=== PATIENT | female | born 1970 | race Two or more races ===

== ENCOUNTER 2021-05-04 07:03 | Inpatient (IN) | payer OTHER ==
[2021-05-04] VITALS (8 sets, daily range): BP systolic 124–134; BP diastolic 59–71
[~2021-05-04] VITALS: Ht 157.5 cm; Wt 54.1 kg
--- NOTE | 2021-05-04 07:52 | RAD ---
AP chest. HISTORY: Covid positive AP view was taken of the chest. There are bilateral infiltrates consistent with Covid pneumonia. Hear t is normal in size. There is no pleural effusion. IMPRESSION: 1. Bilateral infiltrates Electronically signed by: Franki Gonzalez MD (05/04/2021 7:50 AM) [id number]
[2021-05-04 08:22] LABS: BASO % 1 % (0-3); EOS % 1 % (0-3); HEMATOCRIT 21.2 % (36.0-47.0); LYMPH # 1.4 x10^3/uL (1.0-4.8); LYMPH % 24 % (24-48); MEAN CORPUSCULAR HEMOGLOBIN 15 pg (25-35); MEAN CORPUSCULAR HGB CONC 29 g/dL (31-37); MEAN CORPUSCULAR VOLUME 53 fL (79-100); MONO # 0.4 x10^3/uL (0.0-1.1); MONO % 7 % (0-9); NEUT % 68 % (31-73); PLATELET COUNT 467 x10^3/uL (140-400); RED CELL DISTRIBUTION WIDTH 22.9 % (11.5-14.5); WHITE BLOOD COUNT 5.9 x10^3/uL (4.0-11.0)
[2021-05-04 08:29] LABS: HEMOGLOBIN 6.1 g/dL (12.0-15.5)
[2021-05-04 08:31] LABS: CALCIUM 8.5 mg/dL (8.5-10.1); CREATININE 0.6 mg/dL (0.6-1.0); POTASSIUM 3.7 mmol/L (3.5-5.1)
[2021-05-04 08:37] LABS: ALBUMIN 2.7 g/dL (3.4-5.0); ALBUMIN/GLOBULIN RATIO 0.6 (1.0-1.7); MAGNESIUM 2.2 mg/dL (1.8-2.4); TOTAL BILIRUBIN 0.2 mg/dL (0.2-1.0); TOTAL PROTEIN 7.1 g/dL (6.4-8.2)
--- NOTE | 2021-05-04 08:45 | EKG ---
[facility] [address] [place] [address] Test Date: 2021-05-04 Test Time: 07:36:27 Pat Name: CLINT LEAL Department: Room: Gender: F [employer]: : 1970 Requested By: JASEN AVILA Order Number: [id number] Reading MD: Vikram Campuzano MD Measurements Intervals Ida Rate: 92 P: 29 ID: [id number] QRS: -6 QRSD: 72 T: 29 QT: 342 QTc: 428 Interpretive Statements SINUS RHYTHM Electronically Signed On 05-06-2021 9:17:57 CDT by Vikram Campuzano MD
[2021-05-04] MEDS ORDERED: PIPERACILLIN/TAZOBACTAM 3.375 GM in IV NORMAL SALINE 50ML 50 ML IV ONE (09:15)
[2021-05-04] MEDS ORDERED: methylPREDNISolone SOD SUCC PF 125 MG/2 ML VIAL. IV ONE (09:15)
--- NOTE | 2021-05-04 09:23 | PHYS DOC ---
Past Medical History Past Surgical History: No Surgical History Smoking Status: Never Smoker Alcohol Use: None General Adult EDM: Chief Complaint: SHORTNESS OF BREATH HPI: HPI: Patient is a 50 year old female who present to ER due to trouble breathing, fever and chill. Patient says she was diagnosed with COVID-19 infection 2 weeks ago. Patient was put on prednisone and Z-Gilles, she stopped taking prednisone because whenever she took it she feels like she was out of breath. Patient denies any abdominal pain, no vomiting blood, no dark stool. Patient denies any chest pain. Review of Systems: Review of Systems: Constitutional: Positive for fever and chills. Eyes: Denies change in visual acuity. [] HENT: Denies nasal congestion or sore throat. [] Respiratory: Positive for cough and trouble breathing Cardiovascular: Denies chest pain or edema. [] GI: Denies abdominal pain, nausea, vomiting, bloody stools or diarrhea. [] : Denies dysuria. [] Musculoskeletal: Denies back pain or joint pain. [] Integument: Denies rash. [] Neurologic: Denies headache, focal weakness or sensory changes. Positive for general weakness. Endocrine: Denies polyuria or polydipsia. [] Lymphatic: Denies swollen glands. [] Psychiatric: Denies depression or anxiety. [] Heart Score: C/O Chest Pain: N/A Risk Factors: Risk Factors: DM, Current or recent (<one month) smoker, HTN, HLP, family history of CAD, obesity. Risk Scores: Score 0 - 3: 2.5% MACE over next 6 weeks - Discharge Home Score 4 - 6: 20.3% MACE over next 6 weeks - Admit for Clinical Observation Score 7 - 10: 72.7% MACE over next 6 weeks - Early Invasive Strategies Current Medications: Current Medications Medications (Trade) Dose Ordered Sig/Herbert Start Time Stop Time Status Last Admin Dose Admin Methylprednisolone Sodium Succinate (SOLU-Medrol 125MG VIAL) 125 mg 1X ONCE 05/04/21 09:15 05/04/21 09:16 DC Piperacillin Sod/ Tazobactam Sod 3.375 gm/Sodium Chloride 50 ml @ 100 mls/hr 1X ONCE 05/04/21 09:15 05/04/21 09:44 Allergies: Allergies: Allergies Coded Allergies Type Severity Reaction Last Updated Verified No Known Drug Allergies 05/04/21 No Physical Exam: PE: Constitutional: Well developed, well nourished, no acute distress, non-toxic appearance. [] HENT: Normocephalic, atraumatic, bilateral external ears normal, oropharynx moist, no oral exudates, nose normal. [] Eyes: PERRLA, EOMI, conjunctiva pale, no discharge. [] Neck: Normal range of motion, no tenderness, supple, no stridor. [] Cardiovascular:Heart rate regular rhythm, loud systolic murmur [] Lungs & Thorax: Bilateral breath sounds with crackles at lung bases to auscultation [] Abdomen: Bowel sounds normal, soft, no tenderness, no masses, no pulsatile masses. [] Skin: Warm, dry, no erythema, no rash. [] Back: No tenderness, no CVA tenderness. [] Extremities: No tenderness, no cyanosis, no clubbing, ROM intact, no edema. [] Neurologic: Alert and oriented X 3, normal motor function, normal sensory function, no focal deficits noted. [] Psychologic: Affect normal, judgement normal, mood normal. [] Current Patient Data: Labs: Laboratory Tests Test 05/04/21 07:50 White Blood Count 5.9 x10^3/uL (4.0-11.0) Red Blood Count 4.00 x10^6/uL (3.50-5.40) Hemoglobin 6.1 g/dL (12.0-15.5) *L Hematocrit 21.2 % (36.0-47.0) L Mean Corpuscular Volume 53 fL (79-100) L Mean Corpuscular Hemoglobin 15 pg (25-35) L Mean Corpuscular Hemoglobin Concent 29 g/dL (31-37) L Red Cell Distribution Width 22.9 % (11.5-14.5) H Platelet Count 467 x10^3/uL (140-400) H Neutrophils (%) (Auto) 68 % (31-73) Lymphocytes (%) (Auto) 24 % (24-48) Monocytes (%) (Auto) 7 % (0-9) Eosinophils (%) (Auto) 1 % (0-3) Basophils (%) (Auto) 1 % (0-3) Neutrophils # (Auto) 4.0 x10^3/uL (1.8-7.7) Lymphocytes # (Auto) 1.4 x10^3/uL (1.0-4.8) Monocytes # (Auto) 0.4 x10^3/uL (0.0-1.1) Eosinophils # (Auto) 0.0 x10^3/uL (0.0-0.7) Basophils # (Auto) 0.0 x10^3/uL (0.0-0.2) Platelet Estimate Pending Sodium Level 140 mmol/L (136-145) Potassium Level 3.7 mmol/L (3.5-5.1) Chloride Level 104 mmol/L (98-107) Carbon Dioxide Level 24 mmol/L (21-32) Anion Gap 12 (6-14) Blood Urea Nitrogen 7 mg/dL (7-20) Creatinine 0.6 mg/dL (0.6-1.0) Estimated GFR (Cockcroft-Gault) 105.0 BUN/Creatinine Ratio 12 (6-20) Glucose Level 95 mg/dL (70-99) Calcium Level 8.5 mg/dL (8.5-10.1) Magnesium Level 2.2 mg/dL (1.8-2.4) Total Bilirubin 0.2 mg/dL (0.2-1.0) Aspartate Amino Transferase (AST) 43 U/L (15-37) H Alanine Aminotransferase (ALT) 55 U/L (14-59) Alkaline Phosphatase 128 U/L (46-116) H Troponin I Quantitative < 0.017 ng/mL (0.000-0.055) AM-Kin-M-Type Natriuretic Peptide 140 pg/mL (0-124) H Total Protein 7.1 g/dL (6.4-8.2) Albumin 2.7 g/dL (3.4-5.0) L Albumin/Globulin Ratio 0.6 (1.0-1.7) L Laboratory Tests 05/04/21 07:50 Laboratory Tests 05/04/21 07:50 Vital Signs: Vital Signs Date Time Temp Pulse Resp B/P (MAP) Pulse Ox O2 Delivery O2 Flow Rate FiO2 05/04/21 07:20 98.5 96 25 133/63 94 Room Air 98.5 EKG: EKG: EKG was done at 736, heart rate of 92 beats per 100, sinus rhythm, left axis deviation, no ST segment elevation. Radiology/Procedures: Radiology/Procedures: [][facility] [address] [place] [address] IMAGING REPORT Signed PATIENT: CLINT LEAL ACCOUNT: [id number] : 1970 LOCATION: ER AGE: 50 SEX: F EXAM STATUS: PRE ER ORD. PHYSICIAN: JASEN AVILA DO REASON: soa, has COVID INFECTION FOR 2 WEEKS./NOT READY 7:25 NURSE STARTING IV PROCEDURE: CHEST AP ONLY AP chest. HISTORY: Covid positive AP view was taken of the chest. There are bilateral infiltrates consistent with Covid pneumonia. Heart is normal in size. There is no pleural effusion. IMPRESSION: 1. Bilateral infiltrates Electronically signed by: Franki Gonzalez MD (05/04/2021 7:50 AM) [id number] DICTATED and SIGNED BY: FRANKI GONZALEZ MD DATE: 05/04/21 [id number] Course & Med Decision Making: Course & Med Decision Making Pertinent Labs and Imaging studies reviewed. (See chart for details) Patient is a 50-year-old female who present to ER due to trouble breathing. Patient has been infected with COVID-19 for 2 weeks. Patient was found to be anemic, hypoxic on room air, COVID-19 pneumonia. Patient will need to be admitted to hospital for further evaluation and treatment. Patient was discussed with Dr. Amador who agreed to admit the patient. Gabo Disclaimer: Gabo Disclaimer: This electronic medical record was generated, in whole or in part, using a voice recognition dictation system. Departure Departure Impression: Primary Impression: Pneumonia due to COVID-19 virus Additional Impressions: Hypoxia Anemia Disposition: ADMITTED INPATIENT Admitting Physician: GURU (Dr. Amador) Condition: STABLE Referrals: NO PCP (PCP) JASEN AVILA DO May 04, 2021 09:22
[2021-05-04] MEDS ORDERED: ONDANSETRON PF 4 MG/2 ML VIAL. IVP PRN (09:30)
[2021-05-04 10:10] LABS: ANISOCYTOSIS MOD
[2021-05-04 10:11] LABS: PLT ESTIMATE INCREASED (ADEQUATE)
[2021-05-04 10:12] LABS: OVALOCYTES OCC
--- NOTE | 2021-05-04 12:44 | PDOC2 ---
GI CONSULT Date of Service: DATE: 05/04/21 TIME: 12:35 Reason For Consult: anemia HPI: HPI: 50 y/o female diagnosed w/ COVID ~2 weeks ago as outpt, to ER w/ increasing SOA. Noted w/ microcytic anemia and we are asked to see. Denies obvious bleeding including hematemesis, hematochezia, and melena. Some n/v and diarrhea with COVID, but none chronically and says these symptoms are better. No abd pain, constipation, reflux, or dysphagia. Not sure about weight loss. Unaware of h/o anemia. No previous EGD or colonoscopy. Reports monthly menstruation that is "arely heavy." No GB, liver, pancreas, or PUD history. Denies NSAIDs. Was given atbx and steroids as outpt - stopped one because it made her short of breath. PMH: PMH: denies FH: Family History: No pertinent hx (denies GI cancers) Social History: Smoke: No ALCOHOL: none Drugs: None ROS: GEN: Denies fevers, chills, sweats HEENT: Denies blurred vision, sore throat CV: Denies chest pain RESP: +SOA GI: Per HPI : Denies hematuria, dysuria ENDO: Denies weight changes NEURO: Denies confusion, dizziness MSK: Denies weakness, joint pain/swelling SKIN: Denies jaundice, pruritus Vitals: Vitals: Vital Signs Date Time Temp Pulse Resp B/P (MAP) Pulse Ox O2 Delivery O2 Flow Rate FiO2 05/04/21 11:33 99.7 96 18 128/59 (82) 93 Room Air 99.7 Labs: Labs: Laboratory Tests Test 05/04/21 07:50 05/04/21 08:45 White Blood Count 5.9 x10^3/uL (4.0-11.0) Red Blood Count 4.00 x10^6/uL (3.50-5.40) Hemoglobin 6.1 g/dL (12.0-15.5) Hematocrit 21.2 % (36.0-47.0) Mean Corpuscular Volume 53 fL (79-100) Mean Corpuscular Hemoglobin 15 pg (25-35) Mean Corpuscular Hemoglobin Concent 29 g/dL (31-37) Red Cell Distribution Width 22.9 % (11.5-14.5) Platelet Count 467 x10^3/uL (140-400) Neutrophils (%) (Auto) 68 % (31-73) Lymphocytes (%) (Auto) 24 % (24-48) Monocytes (%) (Auto) 7 % (0-9) Eosinophils (%) (Auto) 1 % (0-3) Basophils (%) (Auto) 1 % (0-3) Neutrophils # (Auto) 4.0 x10^3/uL (1.8-7.7) Lymphocytes # (Auto) 1.4 x10^3/uL (1.0-4.8) Monocytes # (Auto) 0.4 x10^3/uL (0.0-1.1) Eosinophils # (Auto) 0.0 x10^3/uL (0.0-0.7) Basophils # (Auto) 0.0 x10^3/uL (0.0-0.2) Platelet Estimate Increased (ADEQUATE) Anisocytosis Mod Ovalocytes Occ Sodium Level 140 mmol/L (136-145) Potassium Level 3.7 mmol/L (3.5-5.1) Chloride Level 104 mmol/L (98-107) Carbon Dioxide Level 24 mmol/L (21-32) Anion Gap 12 (6-14) Blood Urea Nitrogen 7 mg/dL (7-20) Creatinine 0.6 mg/dL (0.6-1.0) Estimated GFR (Cockcroft-Gault) 105.0 BUN/Creatinine Ratio 12 (6-20) Glucose Level 95 mg/dL (70-99) Calcium Level 8.5 mg/dL (8.5-10.1) Magnesium Level 2.2 mg/dL (1.8-2.4) Total Bilirubin 0.2 mg/dL (0.2-1.0) Aspartate Amino Transf (AST/SGOT) 43 U/L (15-37) Alanine Aminotransferase (ALT/SGPT) 55 U/L (14-59) Alkaline Phosphatase 128 U/L (46-116) Troponin I Quantitative < 0.017 ng/mL (0.000-0.055) NU-Uox-I-Type Natriuretic Peptide 140 pg/mL (0-124) Total Protein 7.1 g/dL (6.4-8.2) Albumin 2.7 g/dL (3.4-5.0) Albumin/Globulin Ratio 0.6 (1.0-1.7) Lactic Acid Level 1.2 mmol/L (0.4-2.0) Allergies: Coded Allergies: No Known Drug Allergies (Unverified , 05/04/21) Medications: Current Medications Medications (Trade) Dose Ordered Sig/Herbert Route PRN Reason Start Time Stop Time Status Last Admin Dose Admin Piperacillin Sod/ Tazobactam Sod 3.375 gm/Sodium Chloride 50 ml @ 100 mls/hr 1X ONCE IV 05/04/21 09:15 05/04/21 09:44 DC 05/04/21 09:56 Methylprednisolone Sodium Succinate (SOLU-Medrol 125MG VIAL) 125 mg 1X ONCE IV 05/04/21 09:15 05/04/21 09:16 DC 05/04/21 09:55 Imaging: Imaging: CXR 05/04 IMPRESSION: 1. Bilateral infiltrates PE: GEN: NAD HEENT: Atraumatic, PERRL LUNGS: diminished anteriorly, room air HEART: RRR ABD: NABS, S/ND/NT EXTREMITY: No edema SKIN: No rashes, no jaundice NEURO/PSYCH: A & O 3 A/P: A/P: COVID, pulm infiltrates Microcytic anemia, thrombocytosis, mildly elevated AST and Alk Phos CRC screen - none -- Address respiratory issues. Agree w/ transfusion. Check anemia parameters for completeness. Follow labs. Give empiric PPI. Consider iron infusion. Would benefit from EGD and colonoscopy for further evaluation - can pursue as outpt after COVID issues resolved. Also may need to consider SUPERVISOR SOL[employer] MAKING eval down the road if GI workup unrevealing. Okay to eat per GI - d/w nurse. LESVIA VOGEL May 04, 2021 12:44
[2021-05-04] MEDS: PANTOPRAZOLE 40 MG TABLET.DR. PO SCH (13:30)
[2021-05-04] MEDS ORDERED: IRON SUCROSE COMPLEX 200 MG in IV NORMAL SALINE 100ML 100 ML IV ONE (14:00)
--- NOTE | 2021-05-04 14:43 | HP ---
ADMIT DATE: 05/04/2021 CHIEF COMPLAINT: Shortness of breath. HISTORY OF PRESENT ILLNESS: The patient is a pleasant 50-year-old female who has had COVID-19 for 2 weeks. She has been developing increasing shortness of breath. While in the ER, we noticed that her hemoglobin is down to 6.1. I discussed the case with ER physician. We are going to admit the patient and consult GI. We also transfusing the patient. PAST MEDICAL HISTORY: COVID-19 for the past 2 weeks, previous anemia. ALLERGIES: None. FAMILY HISTORY: Diabetes. SOCIAL HISTORY: She does not drink, smoke or take drugs. MEDICATIONS: Reviewed, please refer to the MRAD. REVIEW OF SYSTEMS: GENERAL: No history of weight change, weakness or fevers. SKIN: No bruising, hair changes or rashes. EYES: No blurred, double or loss of vision. NOSE AND THROAT: No history of nosebleeds, hoarseness or sore throat. HEART: No history of palpitations, chest pain or shortness of breath on exertion. LUNGS: Denies cough, hemoptysis, wheezing or shortness of breath. GASTROINTESTINAL: Denies changes in appetite, nausea, vomiting, diarrhea or constipation. GENITOURINARY: No history of frequency, urgency, hesitancy or nocturia. NEUROLOGIC: Denies history of numbness, tingling, tremor or weakness. PSYCHIATRIC: No history of panic, anxiety or depression. ENDOCRINE: No history of heat or cold intolerance, polyuria or polydipsia. EXTREMITIES: Denies muscle weakness, joint pain, pain on walking or stiffness. . PHYSICAL EXAMINATION: VITALS: Within normal limits and are stable. GENERAL: No apparent distress. Alert and oriented. HEENT: Normal cephalic atraumatic, external auditory canals are patent. EYES: Extraocular muscles are intact, pupils are equally round and reactive to light and accommodation. MUSCULOSKELETAL: Well developed, well nourished, good range of motion. ENDOCRINE: No thyromegaly was palpated. LYMPHATICS: No cervical chain or axillary nodes were noted. HEMATOPOIETIC: No bruising. NECK: Supple, no JVD, no thyromegaly was noted. LUNGS: Clear to auscultation in all lung marquez without rhonchi or wheezing. HEART: RRR, S1, S2 present. Peripheral pulses intact, no obvious murmurs were noted. ABDOMEN: Soft, nontender. Positive bowel sounds no organomegaly, normal bowel sounds. EXTREMITIES: Without any cyanosis, clubbing, or edema. Pedal pulses intact, Homans sign is negative. NEUROLOGIC: Normal speech, normal tone. A and O x 3, moves all extremities, no obvious focal deficits. PSYCHIATRIC: Normal affect, normal mood. Stable. SKIN: No ulcerations or rashes, good skin turgor, no jaundice. VASCULAR: Good capillary refill, neurovascular bundle appears to be intact. LABORATORY DATA: Hemoglobin 6.1. White count 5.9, platelets 427. Electrolytes pending. BNP 140. Troponin is 0. B12 high at 1232. Chest x-ray shows bilateral infiltrates. ASSESSMENT AND PLAN: COVID-19, respiratory failure and severe anemia of undetermined etiology. The patient has been admitted. We will transfuse 2 units of packed red blood cells. Home meds. DVT prophylaxis. Full code. COVID protocol. We consulted GI, they are checking anemia parameters. Empiric proton pump inhibitors. They are considering EGD and colonoscopy as outpatient. We will trend her labs. RODNEY DR: CATIA/hillary TID: [id number]
[2021-05-04 15:40] LABS: HEMATOCRIT 24.9 % (36.0-47.0); HEMOGLOBIN 7.7 g/dL (12.0-15.5)
[2021-05-04] MEDS ORDERED: ACETAMINOPHEN 325 MG TABLET. PO PRN (16:15)
[2021-05-04] MEDS: PIPERACILLIN/TAZOBACTAM 3.375 GM in IV NORMAL SALINE 50ML 50 ML IV SCH ×2 (18:30→23:50)
[2021-05-04] MEDS ORDERED: IBUP-1027 PO (19:53)
[2021-05-04] MEDS ORDERED: IBUPROFEN 400 MG TABLET. PO PRN (20:00)
--- NOTE | 2021-05-04 20:30 | NUR ---
NURSING NOTE Pt assessment completed. Pts oxygen level at this time is at 87% on room air. Pt c/o SOA, RR @ 28. Pt placed on 3L/NC, breathing techniques discussed with pt with return demo. Oxygen level up to 93%. Will monitor.
--- NOTE | 2021-05-04 23:45 | NUR ---
NURSING NOTE Pt sitting up at bedside, oxygen level on 3L/NC is at 87-89%. Pt c/o increasing SOA after brushing her teeth. Oxygen turned up to 5L/NC. Pt assisted to BSC, then back to bed. Oxygen level after settling back in bed is at 95%. Will monitor.
[2021-05-05 02:52] VITALS: BP 136/67
[2021-05-05] MEDS: PIPERACILLIN/TAZOBACTAM 3.375 GM in IV NORMAL SALINE 50ML 50 ML IV SCH ×3 (05:48→17:45)
[2021-05-05 07:00] VITALS: BP 132/40
[2021-05-05 07:01] LABS: HEMATOCRIT 23.6 % (36.0-47.0); HEMOGLOBIN 7.7 g/dL (12.0-15.5); RED BLOOD COUNT 3.98 x10^6/uL (3.50-5.40); RED CELL DISTRIBUTION WIDTH 31.4 % (11.5-14.5); WHITE BLOOD COUNT 7.5 x10^3/uL (4.0-11.0)
[2021-05-05 07:18] LABS: ALBUMIN 2.5 g/dL (3.4-5.0); ALBUMIN/GLOBULIN RATIO 0.6 (1.0-1.7); CALCIUM 8.5 mg/dL (8.5-10.1); CREATININE 0.5 mg/dL (0.6-1.0); GFR 129.6; POTASSIUM 3.8 mmol/L (3.5-5.1); TOTAL BILIRUBIN 0.2 mg/dL (0.2-1.0); TOTAL PROTEIN 6.8 g/dL (6.4-8.2)
[2021-05-05] MEDS: PANTOPRAZOLE 40 MG TABLET.DR. PO SCH (08:43)
--- NOTE | 2021-05-05 10:19 | PDOC ---
Date of Service: DATE: 05/05/21 TIME: 10:14 Subjective: Subjective: Doing okay. No bleeding. Tolerating diet. Hasn't stooled. Objective: Objective: D/w nurse - no GI concerns, did require some O2 overnight. Hemoccult uncollected - no stool yet. Tmax 100.2. Vital Signs: Vital Signs Date Time Temp Pulse Resp B/P (MAP) Pulse Ox O2 Delivery O2 Flow Rate FiO2 05/05/21 07:00 98.5 69 20 132/40 (70) 98 Nasal Cannula 4.0 98.5 Labs: Laboratory Tests Test 05/04/21 15:30 05/05/21 06:25 Hemoglobin 7.7 g/dL 7.7 g/dL Hematocrit 24.9 % 23.6 % Mean Corpuscular Hemoglobin Concent 31 g/dL 33 g/dL White Blood Count 7.5 x10^3/uL Red Blood Count 3.98 x10^6/uL Mean Corpuscular Volume 59 fL Mean Corpuscular Hemoglobin 19 pg Red Cell Distribution Width 31.4 % Platelet Count 491 x10^3/uL Sodium Level 142 mmol/L Potassium Level 3.8 mmol/L Chloride Level 107 mmol/L Carbon Dioxide Level 24 mmol/L Anion Gap 11 Blood Urea Nitrogen 7 mg/dL Creatinine 0.5 mg/dL Estimated GFR (Cockcroft-Gault) 129.6 BUN/Creatinine Ratio 14 Glucose Level 116 mg/dL Calcium Level 8.5 mg/dL Total Bilirubin 0.2 mg/dL Aspartate Amino Transf (AST/SGOT) 33 U/L Alanine Aminotransferase (ALT/SGPT) 53 U/L Alkaline Phosphatase 130 U/L Total Protein 6.8 g/dL Albumin 2.5 g/dL Albumin/Globulin Ratio 0.6 BLOOD CULTURE Preliminary NO GROWTH AFTER 1 DAY PE: GEN: NAD - in COVID isolation - visual exam done - she's eating breakfast LUNGS: NC 4L HEART: RR per chart ABD: non-distended NEURO/PSYCH: A & O 3 A/P: COVID, pulm infiltrates/resp failure JANAK - no obvious GI bleeding, Hgb improved s/p 1 unit pRBCs + Venofer Mildly elevated Alk Phos -- We will plan for outpt EGD and colonoscopy once COVID/resp issues resolve. Transfuse as needed. Needs to continue iron in some form. Needs insurance. Continue PPI for now, particularly if to continue ibuprofen (has ordered here). Justicifation of Admission Dx: Justifications for Admission: Justification of Admission Dx: Yes LESVIA VOEGL May 05, 2021 10:19
[2021-05-05 10:58] VITALS: BP 110/54
[2021-05-05] MEDS: POLYETHYLENE GLYCOL 3350 17 GM PACKET. PO SCH (11:08)
--- NOTE | 2021-05-05 11:18 | NUR ---
SW following. Discussed with RN, pt from home, 4L (does not use oxygen at home), regular diet. COVID-19 positive. GI following. Med Assist following for self pay status. If pt requiring oxygen at discharge, it will be $120 through [employer]. RN notified. SW will continue to follow.
[2021-05-05] MEDS: methylPREDNISolone SOD SUCC PF 40 MG/ML VIAL. IV SCH ×2 (13:23→21:45)
[2021-05-05 15:09] VITALS: BP 118/63
--- NOTE | 2021-05-05 16:14 | PDOC ---
[employer] PROGRESS NOTE Date of Service DOS: DATE: 05/05/21 TIME: 16:12 Chief Complaint Chief Complaint Shortness of breath History of Present Illness History of Present Illness The patient is a pleasant 50-year-old female who has had COVID-19 for 2 weeks. She has been developing increasing shortness of breath. While in the ER, we noticed that her hemoglobin is down to 6.1. I discussed the case with ER physician. We are going to admit the patient and consult GI. We also transfusing the patient. 05/05 Evaluated bedside. No major clinical changes, hemoglobin stable. Continue COVID treatment. Vitals/I&O Vitals/I&O: Vital Signs Date Time Temp Pulse Resp B/P (MAP) Pulse Ox O2 Delivery O2 Flow Rate FiO2 05/05/21 15:09 98.2 70 20 118/63 (81) 97 Nasal Cannula 4.0 98.2 I & O 05/04/21 05/04/21 05/05/21 15:00 23:00 07:00 Intake Total 370 ml 50 ml 350 ml Balance 370 ml 50 ml 350 ml Physical Exam General: Alert, Oriented X3, Cooperative Heart: Regular rate, Normal S1, Normal S2 Lungs: Crackles Abdomen: Normal bowel sounds, Soft Extremities: No edema, Normal pulses Skin: No rashes, No significant lesion Labs Labs: Laboratory Tests Test 05/05/21 06:25 White Blood Count 7.5 x10^3/uL (4.0-11.0) Red Blood Count 3.98 x10^6/uL (3.50-5.40) Hemoglobin 7.7 g/dL (12.0-15.5) Hematocrit 23.6 % (36.0-47.0) Mean Corpuscular Volume 59 fL (79-100) Mean Corpuscular Hemoglobin 19 pg (25-35) Mean Corpuscular Hemoglobin Concent 33 g/dL (31-37) Red Cell Distribution Width 31.4 % (11.5-14.5) Platelet Count 491 x10^3/uL (140-400) Sodium Level 142 mmol/L (136-145) Potassium Level 3.8 mmol/L (3.5-5.1) Chloride Level 107 mmol/L (98-107) Carbon Dioxide Level 24 mmol/L (21-32) Anion Gap 11 (6-14) Blood Urea Nitrogen 7 mg/dL (7-20) Creatinine 0.5 mg/dL (0.6-1.0) Estimated GFR (Cockcroft-Gault) 129.6 BUN/Creatinine Ratio 14 (6-20) Glucose Level 116 mg/dL (70-99) Calcium Level 8.5 mg/dL (8.5-10.1) Total Bilirubin 0.2 mg/dL (0.2-1.0) Aspartate Amino Transf (AST/SGOT) 33 U/L (15-37) Alanine Aminotransferase (ALT/SGPT) 53 U/L (14-59) Alkaline Phosphatase 130 U/L (46-116) Total Protein 6.8 g/dL (6.4-8.2) Albumin 2.5 g/dL (3.4-5.0) Albumin/Globulin Ratio 0.6 (1.0-1.7) Assessment and Plan Assessmemt and Plan Problems Medical Problems: (1) Anemia Status: Acute (2) Hypoxia Status: Acute (3) Pneumonia due to COVID-19 virus Status: Acute COVID-19, respiratory failure and severe anemia of undetermined etiology. The patient has been admitted. We will transfuse 2 units of packed red blood cells. Home meds. DVT prophylaxis. Full code. COVID protocol. We consulted GI, they are checking anemia parameters. Empiric proton pump inhibitors. They are considering EGD and colonoscopy as outpatient. We will trend her labs Comment Review of Relevant I have reviewed the following items arnulfo (where applicable) has been applied. Medications: Current Medications Medications (Trade) Dose Ordered Sig/Herbert Route PRN Reason Start Time Stop Time Status Last Admin Dose Admin Piperacillin Sod/ Tazobactam Sod 3.375 gm/Sodium Chloride 50 ml @ 100 mls/hr Q6HRS IV 05/04/21 17:00 05/05/21 11:08 Polyethylene Glycol (miraLAX PACKET) 17 gm DAILY PO 05/05/21 11:00 05/05/21 11:08 Methylprednisolone Sodium Succinate (SOLU-Medrol 40MG VIAL) 40 mg BID IV 05/05/21 12:00 05/05/21 13:23 Justifications for Admission Other Justification GABY MANN MD May 05, 2021 16:14
[2021-05-05] MEDS: FERROUS SULFATE 325 MG TABLET. PO SCH (17:45)
[2021-05-05 19:00] VITALS: BP 109/58
[2021-05-05] MEDS: LACTOBACILLUS RHAMNOSUS GG 1 CAPSULE. PO SCH (21:45)
[2021-05-05 23:00] VITALS: BP_SYST 127; BP_SYST 141; BP_DIAS 64; BP_DIAS 70
[2021-05-06] MEDS: PIPERACILLIN/TAZOBACTAM 3.375 GM in IV NORMAL SALINE 50ML 50 ML IV SCH ×4 (00:15→17:02)
[2021-05-06] MEDS ORDERED: LEVE500T56 PO (00:43)
[2021-05-06] MEDS ORDERED: ASPI-630 PO (00:43)
[2021-05-06 03:00] VITALS: BP 141/69
[2021-05-06 07:00] VITALS: BP 131/64
[2021-05-06 07:02] LABS: HEMATOCRIT 26.1 % (36.0-47.0); HEMOGLOBIN 7.6 g/dL (12.0-15.5)
[2021-05-06] MEDS: POLYETHYLENE GLYCOL 3350 17 GM PACKET. PO SCH (09:06)
[2021-05-06] MEDS: LACTOBACILLUS RHAMNOSUS GG 1 CAPSULE. PO SCH ×2 (09:06→20:41)
[2021-05-06] MEDS: FERROUS SULFATE 325 MG TABLET. PO SCH ×2 (09:06→17:02)
[2021-05-06] MEDS: PANTOPRAZOLE 40 MG TABLET.DR. PO SCH (09:06)
[2021-05-06] MEDS: methylPREDNISolone SOD SUCC PF 40 MG/ML VIAL. IV SCH ×2 (09:07→20:41)
[2021-05-06 11:00] VITALS: BP 110/59
--- NOTE | 2021-05-06 11:20 | PDOC ---
Date of Service: DATE: 05/06/21 TIME: 11:15 Subjective: Subjective: Feels better. Eating without issue. Thinks she's going to have a stool soon. No bleeding. Objective: Objective: Nurse confirms Hemoccult order. Vital Signs: Vital Signs Date Time Temp Pulse Resp B/P (MAP) Pulse Ox O2 Delivery O2 Flow Rate FiO2 05/06/21 08:00 Nasal Cannula 3.0 05/06/21 07:00 98.1 88 20 131/64 (86) 98 98.1 Labs: Laboratory Tests Test 05/06/21 06:20 Hemoglobin 7.6 g/dL Hematocrit 26.1 % Mean Corpuscular Hemoglobin Concent 29 g/dL BLOOD CULTURE Preliminary NO GROWTH AFTER 2 DAYS PE: GEN: in COVID isolation - visual exam done - in NAD LUNGS: 4L NC HEART: RR per chart ABD: non-distended NEURO/PSYCH: A & O 3 A/P: COVID, pulm infiltrates/resp failure, JANAK -- Hgb stable post transfusions. Continue iron in some form and follow-up for outpt EGD and colonoscopy when resp status has improved. Justicifation of Admission Dx: Justifications for Admission: Justification of Admission Dx: Yes LESVIA VOGEL May 06, 2021 11:20
[2021-05-06 11:53] LABS: FECAL OB PT NEGATIVE (NEG)
--- NOTE | 2021-05-06 11:59 | PDOC ---
[facility] PROGRESS NOTE Date of Service DOS: DATE: 05/06/21 TIME: 11:58 Chief Complaint Chief Complaint Shortness of breath History of Present Illness History of Present Illness The patient is a pleasant 50-year-old female who has had COVID-19 for 2 weeks. She has been developing increasing shortness of breath. While in the ER, we noticed that her hemoglobin is down to 6.1. I discussed the case with ER physician. We are going to admit the patient and consult GI. We also transfusing the patient. 05/05 Evaluated bedside. No major clinical changes, hemoglobin stable. Continue COVID treatment. 05/06 Evaluated bedside. Hemoglobin remained stable. Outpatient scopes. Continuing Covid treatment, attempting to wean oxygen as tolerated. Vitals/I&O Vitals/I&O: Vital Signs Date Time Temp Pulse Resp B/P (MAP) Pulse Ox O2 Delivery O2 Flow Rate FiO2 05/06/21 08:00 Nasal Cannula 3.0 05/06/21 07:00 98.1 88 20 131/64 (86) 98 98.1 I & O 05/05/21 05/05/21 05/06/21 15:00 23:00 07:00 Intake Total 600 ml 250 ml Output Total 2 ml Balance 600 ml 250 ml -2 ml Physical Exam General: Alert, Oriented X3, Cooperative Heart: Regular rate, Normal S1, Normal S2 Lungs: Crackles Abdomen: Normal bowel sounds, Soft Extremities: No edema, Normal pulses Skin: No rashes, No significant lesion Labs Labs: Laboratory Tests Test 05/06/21 06:20 05/06/21 11:25 Hemoglobin 7.6 g/dL (12.0-15.5) Hematocrit 26.1 % (36.0-47.0) Mean Corpuscular Hemoglobin Concent 29 g/dL (31-37) Stool Occult Blood Negative (NEG) Assessment and Plan Assessmemt and Plan Problems Medical Problems: (1) Anemia Status: Acute (2) Hypoxia Status: Acute (3) Pneumonia due to COVID-19 virus Status: Acute COVID-19, respiratory failure and severe anemia of undetermined etiology. The patient has been admitted. We will transfuse 2 units of packed red blood cells. Home meds. DVT prophylaxis. Full code. COVID protocol. We consulted GI, they are checking anemia parameters. Empiric proton pump inhibitors. They are considering EGD and colonoscopy as outpatient. We will trend her labs Comment Review of Relevant I have reviewed the following items arnulfo (where applicable) has been applied. Medications: Current Medications Medications (Trade) Dose Ordered Sig/Herbert Route PRN Reason Start Time Stop Time Status Last Admin Dose Admin Ferrous Sulfate (Feosol) 325 mg BIDWMEALS PO 05/05/21 17:00 05/06/21 09:06 Methylprednisolone Sodium Succinate (SOLU-Medrol 40MG VIAL) 40 mg BID IV 05/05/21 12:00 05/06/21 09:07 Lactobacillus Rhamnosus (Culturelle) 1 cap BID PO 05/05/21 21:00 05/06/21 09:06 Justifications for Admission Other Justification GABY MANN MD May 06, 2021 11:59
--- NOTE | 2021-05-06 12:45 | NUR ---
Critical result taken on pt by this RN. Dr. Burnett notified in person. CARLOS ENRIQUE Nugent also notified.
[2021-05-06 15:00] VITALS: BP 124/63
[2021-05-06 19:00] VITALS: BP 101/57
[2021-05-06 23:00] VITALS: BP 141/70
[2021-05-07] MEDS: PIPERACILLIN/TAZOBACTAM 3.375 GM in IV NORMAL SALINE 50ML 50 ML IV SCH ×4 (00:15→17:29)
[2021-05-07 03:00] VITALS: BP 119/59
[2021-05-07 07:00] VITALS: BP 116/64
[2021-05-07] MEDS: FERROUS SULFATE 325 MG TABLET. PO SCH ×2 (08:19→17:29)
[2021-05-07] MEDS: LACTOBACILLUS RHAMNOSUS GG 1 CAPSULE. PO SCH ×2 (08:19→21:16)
[2021-05-07] MEDS: methylPREDNISolone SOD SUCC PF 40 MG/ML VIAL. IV SCH ×2 (08:19→21:16)
[2021-05-07] MEDS: PANTOPRAZOLE 40 MG TABLET.DR. PO SCH (08:19)
[2021-05-07] MEDS: POLYETHYLENE GLYCOL 3350 17 GM PACKET. PO SCH (08:19)
[2021-05-07 11:00] VITALS: BP 122/51
--- NOTE | 2021-05-07 11:27 | PDOC ---
Date of Service: DATE: 05/07/21 TIME: 11:25 Subjective: Subjective: Feeling better, trying to walk around. No GI complaints. Objective: Objective: D/w nurse - no GI concerns. Attempting to titrate down on O2. Fecal occult was negative. Vital Signs: Vital Signs Date Time Temp Pulse Resp B/P (MAP) Pulse Ox O2 Delivery O2 Flow Rate FiO2 05/07/21 08:00 Nasal Cannula 2.0 05/07/21 07:00 98.2 80 20 116/64 (81) 92 98.2 PE: GEN: NAD - standing in room - COVID isolation/visual exam done LUNGS: NC 2L ABD: non-distended NEURO/PSYCH: A & O 3 A/P: COVID/resp failure JANAK - stable w/ transfusions (checked 05/06/21) -- DC per primary on iron. Plan for outpt scopes w/ respiratory status back to baseline. Justicifation of Admission Dx: Justifications for Admission: Justification of Admission Dx: Yes LESVIA VOGEL May 07, 2021 11:27
--- NOTE | 2021-05-07 11:37 | NUR ---
SW following. Discussed with RN, pt from home, 2L (does not use oxygen at home), regular diet. If pt needing oxygen at home it will be $120 a month through [employer]. [facility] following for self pay status. SW will continue to follow.
--- NOTE | 2021-05-07 12:05 | PDOC ---
[facility] PROGRESS NOTE Date of Service DOS: DATE: 05/07/21 TIME: 12:03 Chief Complaint Chief Complaint Shortness of breath History of Present Illness History of Present Illness The patient is a pleasant 50-year-old female who has had COVID-19 for 2 weeks. She has been developing increasing shortness of breath. While in the ER, we noticed that her hemoglobin is down to 6.1. I discussed the case with ER physician. We are going to admit the patient and consult GI. We also transfusing the patient. 05/05 Evaluated bedside. No major clinical changes, hemoglobin stable. Continue COVID treatment. 05/06 Evaluated bedside. Hemoglobin remained stable. Outpatient scopes. Continuing Covid treatment, attempting to wean oxygen as tolerated. 05/07 Patient evaluated at bedside. Hemoglobin remained stable. When I saw her she was on 2 L nasal cannula. She reports her breathing is improving but still not at her baseline. May need home O2 for a few weeks. We will continue to monitor, possible discharge over the weekend. Vitals/I&O Vitals/I&O: Vital Signs Date Time Temp Pulse Resp B/P (MAP) Pulse Ox O2 Delivery O2 Flow Rate FiO2 05/07/21 08:00 Nasal Cannula 2.0 05/07/21 07:00 98.2 80 20 116/64 (81) 92 98.2 I & O 05/06/21 05/06/21 05/07/21 15:00 23:00 07:00 Intake Total 230 ml 50 ml Balance 230 ml 50 ml Physical Exam General: Alert, Oriented X3, Cooperative Heart: Regular rate, Normal S1, Normal S2 Lungs: Crackles Abdomen: Normal bowel sounds, Soft Extremities: No edema, Normal pulses Skin: No rashes, No significant lesion Labs Labs: Lab work reviewed Assessment and Plan Assessmemt and Plan Problems Medical Problems: (1) Anemia Status: Acute (2) Hypoxia Status: Acute (3) Pneumonia due to COVID-19 virus Status: Acute COVID-19, respiratory failure and severe anemia of undetermined etiology. The patient has been admitted. We will transfuse 2 units of packed red blood cells. Home meds. DVT prophylaxis. Full code. COVID protocol. We consulted GI, they are checking anemia parameters. Empiric proton pump inhibitors. They are considering EGD and colonoscopy as outpatient. We will trend her labs Comment Review of Relevant I have reviewed the following items arnulfo (where applicable) has been applied. Justifications for Admission Other Justification GABY MANN MD May 07, 2021 12:05
--- NOTE | 2021-05-07 12:25 | NUR ---
Pt agreeable to pay the $120/ month for home oxygen.
[2021-05-07 12:51] LABS: HEMOGLOBIN 8.2 g/dL (12.0-15.5)
[2021-05-07 15:00] VITALS: BP 118/57
[2021-05-07 19:00] VITALS: BP 111/56
[2021-05-07 23:00] VITALS: BP 136/62
[2021-05-08] MEDS: PIPERACILLIN/TAZOBACTAM 3.375 GM in IV NORMAL SALINE 50ML 50 ML IV SCH ×4 (00:05→17:04)
[2021-05-08 03:00] VITALS: BP 141/68
[2021-05-08 07:00] VITALS: BP 101/57
[2021-05-08] MEDS: methylPREDNISolone SOD SUCC PF 40 MG/ML VIAL. IV SCH ×2 (09:21→21:11)
[2021-05-08] MEDS: LACTOBACILLUS RHAMNOSUS GG 1 CAPSULE. PO SCH ×2 (09:21→21:10)
[2021-05-08] MEDS: POLYETHYLENE GLYCOL 3350 17 GM PACKET. PO SCH (09:21)
[2021-05-08] MEDS: PANTOPRAZOLE 40 MG TABLET.DR. PO SCH (09:21)
[2021-05-08] MEDS: FERROUS SULFATE 325 MG TABLET. PO SCH ×2 (09:21→17:04)
[2021-05-08 11:00] VITALS: BP 116/57
[2021-05-08 15:00] VITALS: BP 110/58
[2021-05-08 19:59] VITALS: BP 114/63
[2021-05-08 23:54] VITALS: BP 117/51
[2021-05-09] MEDS: PIPERACILLIN/TAZOBACTAM 3.375 GM in IV NORMAL SALINE 50ML 50 ML IV SCH ×3 (00:05→12:00)
[2021-05-09 03:57] VITALS: BP 111/54
[2021-05-09] MEDS: PANTOPRAZOLE 40 MG TABLET.DR. PO SCH (06:00)
[2021-05-09 07:00] VITALS: BP 114/88
--- NOTE | 2021-05-09 09:01 | PDOC ---
[facility] PROGRESS NOTE Date of Service DOS: DATE: 05/08/21 TIME: 09:00 Late entry for May 08 Chief Complaint Chief Complaint Shortness of breath History of Present Illness History of Present Illness The patient is a pleasant 50-year-old female who has had COVID-19 for 2 weeks. She has been developing increasing shortness of breath. While in the ER, we noticed that her hemoglobin is down to 6.1. I discussed the case with ER physician. We are going to admit the patient and consult GI. We also transfusing the patient. 05/05 Evaluated bedside. No major clinical changes, hemoglobin stable. Continue COVID treatment. 05/06 Evaluated bedside. Hemoglobin remained stable. Outpatient scopes. Continuing Covid treatment, attempting to wean oxygen as tolerated. 05/07 Patient evaluated at bedside. Hemoglobin remained stable. When I saw her she was on 2 L nasal cannula. She reports her breathing is improving but still not at her baseline. May need home O2 for a few weeks. We will continue to monitor, possible discharge over the weekend. 05/08 Patient evaluated bedside. She is very eager to go home but still very nervous about her breathing. She was on room air when I saw her. We will try 6-minute walk today. Discharge today or tomorrow. Vitals/I&O Vitals/I&O: Vital Signs Date Time Temp Pulse Resp B/P (MAP) Pulse Ox O2 Delivery O2 Flow Rate FiO2 05/09/21 07:00 98.0 104 18 114/88 (97) 95 Room Air 98.0 I & O 05/08/21 05/08/21 05/09/21 15:00 23:00 07:00 Intake Total 480 ml 240 ml Output Total 450 ml Balance 480 ml -210 ml Physical Exam General: Alert, Oriented X3, Cooperative Heart: Regular rate, Normal S1, Normal S2 Lungs: Crackles Abdomen: Normal bowel sounds, Soft Extremities: No edema, Normal pulses Skin: No rashes, No significant lesion Labs Labs: All labs reviewed Assessment and Plan Assessmemt and Plan Problems Medical Problems: (1) Anemia Status: Acute (2) Hypoxia Status: Acute (3) Pneumonia due to COVID-19 virus Status: Acute COVID-19, respiratory failure and severe anemia of undetermined etiology. The patient has been admitted. We will transfuse 2 units of packed red blood cells. Home meds. DVT prophylaxis. Full code. COVID protocol. We consulted GI, they are checking anemia parameters. Empiric proton pump inhibitors. They are considering EGD and colonoscopy as outpatient. We will trend her labs Comment Review of Relevant I have reviewed the following items arnulfo (where applicable) has been applied. Justifications for Admission Other Justification GABY MANN MD May 09, 2021 09:01
[2021-05-09] MEDS: methylPREDNISolone SOD SUCC PF 40 MG/ML VIAL. IV SCH (09:19)
[2021-05-09] MEDS: POLYETHYLENE GLYCOL 3350 17 GM PACKET. PO SCH (09:20)
[2021-05-09] MEDS: FERROUS SULFATE 325 MG TABLET. PO SCH (09:20)
[2021-05-09] MEDS: LACTOBACILLUS RHAMNOSUS GG 1 CAPSULE. PO SCH (09:20)
[2021-05-09] MEDS ORDERED: FERR325T72 PO (10:42)
--- NOTE | 2021-05-09 10:44 | PDOC3 ---
[facility]-Discharge Summary Date of Admission: Date of Admission: May 04, 2021 Date of Discharge: Date of Discharge: May 09, 2021 Admission Diagnosis: Problems: (1) Pneumonia due to COVID-19 virus Discharge Diagnosis: Discharge Diagnosis: Same Hospital Course: Hospital Course: History of Present Illness The patient is a pleasant 50-year-old female who has had COVID-19 for 2 weeks. She has been developing increasing shortness of breath. While in the ER, we noticed that her hemoglobin is down to 6.1. I discussed the case with ER physician. We are going to admit the patient and consult GI. We also transfusing the patient. 05/05 Evaluated bedside. No major clinical changes, hemoglobin stable. Continue COVID treatment. 05/06 Evaluated bedside. Hemoglobin remained stable. Outpatient scopes. Continuing Covid treatment, attempting to wean oxygen as tolerated. 05/07 Patient evaluated at bedside. Hemoglobin remained stable. When I saw her she was on 2 L nasal cannula. She reports her breathing is improving but still not at her baseline. May need home O2 for a few weeks. We will continue to monitor, possible discharge over the weekend. 05/08 Patient evaluated bedside. She is very eager to go home but still very nervous about her breathing. She was on room air when I saw her. We will try 6-minute walk today. Discharge today or tomorrow. 05/09 No events of this morning. Passed 6-minute walk yesterday. Doing well. Will discharge home today. Disposition: Disposition/Orders: D/C to Home Activity: Activity: Resume previous activity Diet: Diet: Regular Medications: Home Meds Active Scripts Ferrous Sulfate (FEOSOL) 325 Mg Tablet, 325 MG PO BIDWMEALS for yasmin for 60 Days, #120 TAB Prov:GABY MANN MD 05/09/21 Reported Medications Aspirin (ASPIRIN) 81 Mg Tab.chew, 162 MG PO DAILY for preventative, TAB.CHEW 05/06/21 Levetiracetam (KEPPRA) 500 Mg Tablet, 500 MG PO BID for seizures, TAB 05/06/21 Ibuprofen (IBUPROFEN) 400 Mg Tablet, 400 MG PO PRN Q6HRS PRN for PAIN, TAB 05/04/21 Scheduled Aspirin (Aspirin), 162 MG PO DAILY, (Reported) Ferrous Sulfate (Feosol), 325 MG PO BIDWMEALS Levetiracetam (Keppra), 500 MG PO BID, (Reported) Scheduled PRN Ibuprofen (Ibuprofen), 400 MG PO PRN Q6HRS PRN for PAIN, (Reported) Justicifation of Admission Dx: Justifications for Admission: Justification of Admission Dx: Yes GABY MANN MD May 09, 2021 10:44
[2021-05-09 11:00] VITALS: BP 119/66
--- NOTE | 2021-05-09 14:10 | NUR ---
Discharge Note: PT DISCHRAGED HOME WITH SELF CARE. PT LEFT FACILITY VIA PRIVATE VEHICLE WITH BROTHER AT 1400. PT STABLE AND ALERT UPON DISCHARGE. PT PIV REMOVED FROM R AC WITHOUT COMPLICATIONS, BANDAGE APPLIED. PT EDUCATED ABOUT DISCHARGE MEDICATINS, DISCHARGE INSTRUCTIONS, FOLLOW-UP CARE INSTRUCTIONS, AND WORK RELEASE INFORMATION. NO CONCERNS VOICED AT THIS TIME. PT LEFT WITH ALL PERSONAL BELONGINGS. KANA LEAL Discharge instructions and discharge home medications reviewed with Patient and a copy given. All questions have been answered and understanding verbalized.
== END 2021-05-09 14:00 | disposition home or self-care (01) | DRG 177 ==
LOC: ER 07:03 → 5 SOUTH 09:30
PROVIDERS: ADMIT Internal Medicine; ATTEND Internal Medicine
PROC: 30233N1 Transfusion of Nonautologous Red Blood Cells into Peripheral Vein, Percutaneous Approach (ICD-10-PCS; principal; 2021-05-04)
DX: U07.1 COVID-19 (principal); J96.91 Respiratory failure, unspecified with hypoxia; J12.82 Pneumonia due to coronavirus disease 2019; D50.9 Iron deficiency anemia, unspecified; Z83.3 Family history of diabetes mellitus; Z79.899 Other long term (current) drug therapy
CPT/HCPCS: 36415; 36430; 71045; 80053; 82274; 82607; 83540; 83550; 83605; 83735; 83880; 84484; 85014; 85018; 85025; 85027; 85045; 86850; 86900; 86901; 86920; 87040; 87077; 87205; 93005; 94618; 96365; 96375; J1756; J2543; J2920; J2930; P9016; 99285-25; G0378